=== PATIENT | female | born 1960 | race Caucasian/White ===

== ENCOUNTER 2023-11-19 07:34 | Day surgery (SDC) | payer MEDICAID ==
[~2023-11-19] VITALS: Ht 167.6 cm; Wt 66.4 kg
[~2023-11-19 07:34] MED LIST: SODIUM CHLORIDE 0.9% 1,000 ML ONE
[2023-11-19] MEDS ORDERED: PROPOFOL 1% 20 ML VIAL IVP ONE (07:35)
[2023-11-19] MEDS ORDERED: LIDOCAINE/PF 2% 5 ML SYRINGE IVP ONE (07:35)
[2023-11-19] MEDS ORDERED: GLYCOPYRROLATE 0.2 MG/ML VIAL IM ONE (07:35)
[2023-11-19] MEDS: SODIUM CHLORIDE 0.9% 1,000 ML IV ONE (08:13)
[2023-11-19] MEDS ORDERED: SODIUM CHLORIDE 0.9% 1,000 ML IV ONE (09:30)
== END 2023-11-19 11:25 | disposition home or self-care (01) ==
LOC: SURGERY 07:34
PROVIDERS: ATTEND Internal Medicine
DX: Z12.11 Encounter for screening for malignant neoplasm of colon (principal); K57.30 Diverticulosis of large intestine without perforation or abscess without bleeding; K62.1 Rectal polyp; Z79.899 Other long term (current) drug therapy; Z90.710 Acquired absence of both cervix and uterus; Z98.51 Tubal ligation status
CPT/HCPCS: 45385; 88305; C1769; J2704; J3490 ×2; J7030